=== PATIENT | female | born 1995 | race Caucasian/White ===

== ENCOUNTER 2019-01-09 09:31 | Emergency (ER) | payer OTHER ==
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
[2019-01-09] MEDS ORDERED: Cyclobenzaprine TAB* 10 MG PO ONE (11:04)
[2019-01-09] MEDS ORDERED: Ibuprofen TAB* 600 MG PO ONE (11:04)
[2019-01-09 11:38] VITALS: BP 135/79
== END 2019-01-09 11:37 | disposition home or self-care (01) ==
LOC: ED 09:31
DX: M54.9 Dorsalgia, unspecified (principal); M25.512 Pain in left shoulder; V43.52XA Car driver injured in collision with other type car in traffic accident, initial encounter; W22.11XA Striking against or struck by driver side automobile airbag, initial encounter; Y92.410 Unspecified street and highway as the place of occurrence of the external cause; M41.86 Other forms of scoliosis, lumbar region; M41.84 Other forms of scoliosis, thoracic region; Z88.0 Allergy status to penicillin
CPT/HCPCS: 71046; 72070; 72100; 99282; A9270-GY